=== PATIENT | male | born 1955 | race African-American/Black ===

== ENCOUNTER 2016-11-13 09:50 | Outpatient (CLI) | payer OTHER ==
[~2016-11-13 09:50] MED LIST: BACTRIM DS1 TAB PO; CLONIDINE0.1 MG PO; FURO20TA67 PO; HUMULIN N1 ML SC; HYDR25TA60 PO; LISI10TA11 PO; MELOXICAM7.5 MG PO; METF500T PO; NOVOLIN N1 ML SC; SIMV20TA2 PO
[2016-11-13 10:47] LABS: POTASSIUM 4.3 mmol/L (3.6-5.2)
[2016-11-13 10:49] LABS: PLATELET COUNT 302 K/uL (142-355)
== END 2016-11-13 23:01 | disposition home or self-care (01) ==
LOC: LABW 09:50
PROVIDERS: Physician Assistant
DX: N18.6 End stage renal disease (principal); Z99.2 Dependence on renal dialysis; I21.3 ST elevation (STEMI) myocardial infarction of unspecified site; I63.9 Cerebral infarction, unspecified; I73.9 Peripheral vascular disease, unspecified; I50.9 Heart failure, unspecified; I12.0 Hypertensive chronic kidney disease with stage 5 chronic kidney disease or end stage renal disease
CPT/HCPCS: 36415; 80053; 82306; 83735; 84100; 84439; 84443; 85027; 93005

== ENCOUNTER 2017-04-06 14:37 | Outpatient (CLI) | payer OTHER ==
[2017-04-06 15:22] LABS: PLATELET COUNT 260 K/uL (142-355)
[2017-04-06 15:54] LABS: POTASSIUM 3.5 mmol/L (3.6-5.2)
== END 2017-04-06 19:10 | disposition home or self-care (01) ==
LOC: LABW 14:37
PROVIDERS: Family Medicine
DX: E10.65 Type 1 diabetes mellitus with hyperglycemia (principal); I73.89 Other specified peripheral vascular diseases; I10 Essential (primary) hypertension; E55.9 Vitamin D deficiency, unspecified
CPT/HCPCS: 36415; 80053; 80061; 82306; 83036; 83735; 84439; 84443; 84550; 85027

== ENCOUNTER 2017-08-17 12:47 | Outpatient (CLI) | payer OTHER | END 2017-08-17 19:25 | disposition home or self-care (01) | LOC: LAB 12:47 | DX: E87.5 Hyperkalemia (principal) | CPT/HCPCS: 84132 ==

== ENCOUNTER 2017-10-23 21:01 | Emergency (ER) | payer OTHER ==
[~2017-10-23] VITALS: Ht 165.1 cm; Wt 61.2 kg
[2017-10-23 21:56] LABS: PLATELET COUNT 161 K/uL (142-355)
[2017-10-23 22:16] LABS: POTASSIUM 4.7 mmol/L (3.6-5.2)
[2017-10-23 23:11] VITALS: BP 147/77; TEMP 98.6
== END 2017-10-23 23:16 | disposition home or self-care (01) ==
LOC: ED 21:01
DX: G45.9 Transient cerebral ischemic attack, unspecified (principal)
CPT/HCPCS: 36415; 80053; 85027; 99283

== ENCOUNTER 2017-12-10 12:56 | Outpatient (CLI) | payer OTHER | END 2017-12-10 21:33 | disposition home or self-care (01) | LOC: LABW 12:56 | DX: R68.89 Other general symptoms and signs (principal) | CPT/HCPCS: 87804 ==

== ENCOUNTER 2018-10-07 07:30 | Day surgery (SDC) | payer OTHER | END 2018-10-07 11:02 | disposition home or self-care (01) | LOC: OR 07:30 | PROC: 08RK3JZ Replacement of Left Lens with Synthetic Substitute, Percutaneous Approach (ICD-10-PCS; principal; 2018-10-07) | DX: H25.812 Combined forms of age-related cataract, left eye (principal) | CPT/HCPCS: 66984; 84132; V2632 ==

== ENCOUNTER 2019-03-30 16:10 | Emergency (ER) | payer OTHER ==
[~2019-03-30] VITALS: Ht 162.6 cm; Wt 63.0 kg
[2019-03-30 16:45] VITALS: TEMP 98.2
[2019-03-30] MEDS ORDERED: NEURONTIN 100M100 MG PO (16:53)
[2019-03-30] MEDS ORDERED: PROMETHAZINE HY25 MG PO (16:53)
[2019-03-30] MEDS ORDERED: CARV3.12 PO (16:54)
[2019-03-30] MEDS ORDERED: LISI5TAB10 PO (16:54)
[2019-03-30] MEDS ORDERED: AMOX500T5 PO (16:55)
[2019-03-30] MEDS ORDERED: LEVEMIR FL100 UNIT/M SC (16:57)
[2019-03-30 18:10] VITALS: BP 161/71
== END 2019-03-30 18:10 | disposition home or self-care (01) ==
LOC: ED 16:10
DX: R11.0 Nausea (principal); L29.8 Other pruritus; G47.09 Other insomnia
CPT/HCPCS: 99282

== ENCOUNTER 2019-07-29 09:25 | Outpatient (CLI) | payer OTHER ==
[~2019-07-29] VITALS: Ht 157.5 cm; Wt 62.1 kg
[~2019-07-29 09:25] MED LIST changes: +AMOX500T5 PO; +CARV3.12 PO; +LEVEMIR FL100 UNIT/M SC; +LISI5TAB10 PO; +NEURONTIN 100M100 MG PO; +PROMETHAZINE HY25 MG PO
== END 2019-07-29 20:16 | disposition home or self-care (01) ==
LOC: NM 09:25
DX: Z01.810 Encounter for preprocedural cardiovascular examination (principal); I10 Essential (primary) hypertension
CPT/HCPCS: 93306; A9500; J2785

== ENCOUNTER 2019-10-31 14:36 | Emergency (ER) | payer OTHER ==
[~2019-10-31] VITALS: Ht 157.5 cm; Wt 62.1 kg
[2019-10-31 14:47] VITALS: BP 149/77; TEMP 101.1
[2019-10-31 16:03] LABS: PLATELET COUNT 154 K/uL (142-355)
[2019-10-31 16:08] LABS: POTASSIUM 4.2 mmol/L (3.6-5.2)
== END 2019-10-31 18:22 | disposition home or self-care (01) ==
LOC: ED 14:36
PROVIDERS: Family Medicine
DX: R50.9 Fever, unspecified (principal); G47.09 Other insomnia; N18.6 End stage renal disease; Z99.2 Dependence on renal dialysis; J06.9 Acute upper respiratory infection, unspecified; Z98.890 Other specified postprocedural states
CPT/HCPCS: 80053; 85027; 87502; 99283; 99284

== ENCOUNTER 2020-07-08 15:21 | Outpatient (CLI) | payer OTHER | END 2020-07-08 20:02 | disposition home or self-care (01) | LOC: RAD 15:21 | DX: M54.2 Cervicalgia (principal); R05 Cough ==

== ENCOUNTER 2020-09-20 12:42 | Emergency (ER) | payer OTHER ==
[~2020-09-20] VITALS: Ht 157.5 cm; Wt 62.1 kg
[2020-09-20 12:50] VITALS: TEMP 98.5
[2020-09-20 14:01] LABS: PLATELET COUNT 131 K/uL (142-355)
[2020-09-20 14:14] LABS: POTASSIUM 4.4 mmol/L (3.6-5.2)
[2020-09-20 14:50] VITALS: BP 162/76
== END 2020-09-20 15:27 | disposition home or self-care (01) ==
LOC: ED 12:42
PROVIDERS: Emergency Medicine Emergency Medical Services
DX: G25.0 Essential tremor (principal); Z03.818 Encounter for observation for suspected exposure to other biological agents ruled out
CPT/HCPCS: 80053; 83735; 85027; 87502; 87635; 99283; U0003

== ENCOUNTER 2023-03-13 04:55 | Emergency (ER) | payer OTHER ==
[~2023-03-13] VITALS: Ht 157.5 cm; Wt 52.6 kg
[2023-03-13 05:29] LABS: PLATELET COUNT 128 K/uL (142-355)
[2023-03-13 05:33] LABS: POTASSIUM 6.1 mmol/L (3.6-5.2)
[2023-03-13 06:00] VITALS: BP 147/61; TEMP 97.8
== END 2023-03-13 06:00 | disposition short-term general hospital (02) ==
LOC: ED 05:03
PROVIDERS: Family Medicine
DX: I63.9 Cerebral infarction, unspecified (principal)
CPT/HCPCS: 80053; 84484; 85027; 85610; 93005; 96365; 96375; 99285; J1815; J3490; J7060